=== PATIENT | male | born 1955 | race Caucasian/White ===

== ENCOUNTER 2021-07-13 10:35 | Outpatient (REF) | payer MEDICARE, MEDICAID, SELFPAY ==
--- NOTE | 2021-07-13 09:45 | LIPBX_PTH ---
PATIENT: Brown Urias LOC: [facility] U#:[id number] AGE/SX: 66/M ROOM: RE07/13/[address]: Salas Gonzalez MD : 1955 BED: DIS: 07/13/2021 SPEC #: [id number] RECD: 07/13/21 18:28 STATUS: SUSANA REQ #: [id number] ISIS: 07/13/21 09:[address]: Salas Gonzalez DEPT: Surgical Specimen RECD BY: Cheyanne Mcwilliams ENTERED: 07/13/21 18:28 SP TYPE: LIPBX OTHR DR: Kate Pacheco Tissues: 1 - LIP BIOPSY/RESECTION Procedures: GROSS AND MICRO LEVEL 4 Comments: [id number]
== END 2021-07-13 10:36 | disposition home or self-care (01) ==
LOC: LBN 10:35
PROVIDERS: PCP Internal Medicine; Visit Provider Otolaryngology
DX: D23.0 Other benign neoplasm of skin of lip (principal)
CPT/HCPCS: 88305

== ENCOUNTER → 2024-12-30 10:38 | Outpatient (BNVA) | payer MEDICARE, MEDICAID, SELFPAY | PROVIDERS: PCP Internal Medicine; Referring Provider Internal Medicine; Visit Provider Nurse Practitioner Gerontology | DX: N40.1 Benign prostatic hyperplasia with lower urinary tract symptoms (principal); R35.1 Nocturia; R35.0 Frequency of micturition; R39.15 Urgency of urination; N13.8 Other obstructive and reflux uropathy; E11.22 Type 2 diabetes mellitus with diabetic chronic kidney disease; N18.9 Chronic kidney disease, unspecified; R39.9 Unspecified symptoms and signs involving the genitourinary system | CPT/HCPCS: 99205; 81002; 51798 ==